=== PATIENT | male | born 1965 | race Caucasian/White ===

== ENCOUNTER 2016-12-06 18:00 | Inpatient (IN) ==
[2016-12-06 18:26] LABS: Basophils % 0.4 %; Eosinophils # 0.2 K/mcL (0.0-0.6); Eosinophils % 1.9 %; Hematocrit 45.3 % (37.5-50.1); Hemoglobin 15.1 g/dL (12.9-16.9); Immature Granulocytes % 0.2 % (0-4); Lymphocytes # 2.1 K/mcL (0.6-4.6); Lymphocytes % 22.1 %; Mean Corpuscular HGB Conc 33.3 g/dL (31.6-35.5); Mean Corpuscular Hemoglobin 29.4 pg (28.0-33.3); Mean Corpuscular Volume 88.1 fL (83.0-100.0); Monocytes # 1.1 K/mcL (0.0-1.3); Monocytes % 11.2 %; Neutrophils # 6.1 K/mcL (1.6-8.9); Platelet Count 225 K/mcL (140-400); Red Blood Count 5.14 M/mcL (4.19-5.50); Red Cell Distribution Width 13.6 % (11.5-14.5); Segmented Neutrophils % 64.2 %
--- NOTE | 2016-12-06 18:33 | Emergency Department Note ---
Disposition Clinical Impression: Unstable angina pectoris Disposition: Transfer Short-Term Hosp Condition: Good Referrals: NO,PCP [Primary Care Provider] - Forms: ED Satisfaction Letter Chest Pain HPI - General Chief Complaint: ED Chest Pain Stated Complaint: chest pain Time Seen by Provider: 12/06/16 18:07 Source: patient Mode of arrival: ambulatory Limitations: no limitations Vital Signs Reviewed: Yes Nursing Notes Reviewed: Yes - History of Present Illness Pt complaint: chest pain Onset (ago): hour(s) (6) Duration: intermittent Onset: during exertion Pain Location: substernal Severity scale (1-10): 6 Quality: heaviness Pain Radiation: none Improves with: nitroglycerin Worsens with: nothing Associated symptoms: Reports: diaphoresis, sense of impending doom Treatments prior to arrival chest pain: aspirin, nitroglycerin - Related Data Home Medications Medication Instructions Recorded Confirmed OxyCODONE/APAP 5/325 [Percocet 1 each PO Q6HR 01/16/15 01/16/15 5/325 MG] Previous Rx's Medication Instructions Recorded Nicotine Patch [Nicoderm] 21 mg TD DAILY #30 patch.td24 01/17/15 Simvastatin [Zocor] 20 mg PO HS #30 tablet 01/17/15 amLODIPine [Norvasc] 5 mg PO DAILY #30 tablet 01/17/15 Allergies Allergy/AdvReac Type Severity Reaction Status Date / Time No Known Allergies Allergy Verified 01/16/15 08:00 All systems ED: reviewed and negative except as stated. Constitutional: Denies: fever, chills, weakness Respiratory: Denies: wheezes, hemoptysis Chest Pain PMH - Past Medical History Medical history: Reports: other Surgical history: Reports: herniorrhaphy Psychiatric history: Reports: no psych history - Social History Smoking Status: Current every day smoker Alcohol use: Reports: occasionally Drug use: Reports: none Physical Exam - General Limitations: no limitations General appearance: alert, in no apparent distress - Head Head exam: atraumatic, normocephalic, normal inspection - Eye Eye exam: Present: normal appearance, PERRL, EOMI - Expanded Eye Exam Pupils: Left: reactive - ENT ENT exam: normal exam, normal oropharynx, mucous membranes moist - Expanded ENT Exam External ear exam: Present: normal external inspection Mouth exam: Present: normal external inspection Teeth exam: Present: normal inspection Throat exam: Present: normal inspection - Neck Neck exam: Present: normal inspection, full ROM, trachea midline - Chest Chest inspection: Present: normal inspection, symmetric chest wall rise - Respiratory Respiratory exam: Present: normal lung sounds bilaterally - Cardiovascular Cardiovascular exam: Present: regular rate, normal rhythm, normal heart sounds - Abdominal Exam Abdominal exam: Present: soft, Non-Tender. Absent: tenderness, distention, guarding, rebound, rigidity - Extremities Exam Extremities exam: Present: normal inspection, full ROM. Absent: tenderness, pedal edema - Expanded Upper Extremity Exam Shoulder exam: Present: normal inspection, full ROM Arm exam: Present: normal inspection, full ROM Elbow exam: Present: normal inspection, full ROM Forearm/Wrist exam: Present: normal inspection, full ROM Hand exam: Present: normal inspection, full ROM Vascular exam: Normal: capillary refill, radial pulse - Expanded Lower Extremity Exam Hip/Pelvis exam: Present: normal inspection, full ROM Upper leg exam: Present: normal inspection, full ROM Knee exam: Present: normal inspection, full ROM Lower leg exam: Present: normal inspection, full ROM Ankle exam: Present: normal inspection, full ROM Foot/toe exam: Present: normal inspection, full ROM Neurovascular/Tendon exam: Absent: motor deficit, sensory deficit, tendon deficit - Back Exam Back exam: Present: normal inspection, full ROM. Absent: tenderness - Neurological Exam Neurological exam: Present: alert, oriented X3 - Expanded Neurological Exam Patient oriented to: Present: person, place, time Coma Scale Eye Opening: Spontaneous Coma Scale Motor Response: Obeys Commands Coma Scale Verbal Response: Oriented Coma Scale Total: 15 - Psychiatric Psychiatric exam: Present: normal affect, normal mood - Skin Skin exam: Present: warm, dry, intact, normal color Course Vital Signs O2 Sat by Pulse Oximetry 97 12/06/16 18:13 Temperature 98.0 F 12/06/16 20:47 Pulse Rate 56 12/06/16 20:56 Respiratory Rate 18 12/06/16 20:56 Blood Pressure 140/77 12/06/16 20:56 O2 Sat by Pulse Oximetry 97 12/06/16 20:56 Oxygen Delivery Oxygen Delivery Room Air Chest Pain - MDM Narrative Medical decision making narrative: Patient states he does not want to be admitted to our facility 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 - Lab Data Lab results reviewed: Yes I reviewed the patient's lab results. Result diagrams: 12/06/16 18:18 12/06/16 18:18 Lab Results 12/06/16 12/06/16 12/06/16 Range/Units 18:18 18:18 18:18 WBC 9.6 (4.3-11.1) K/mcL RBC 5.14 (4.19-5.50) M/mcL Hgb 15.1 (12.9-16.9) g/dL Hct 45.3 (37.5-50.1) % MCV 88.1 (83.0-100.0) fL MCH 29.4 (28.0-33.3) pg MCHC 33.3 (31.6-35.5) g/dL RDW 13.6 (11.5-14.5) % Plt Count 225 (140-400) K/mcL MPV 10.0 (9.4-12.4) fL Immature Gran % 0.2 (0-4) % Seg Neutrophils % 64.2 % Lymphocytes % 22.1 % Monocytes % 11.2 % Eosinophils % 1.9 % Basophils % 0.4 % Neutrophils # 6.1 (1.6-8.9) K/mcL Lymphocytes # 2.1 (0.6-4.6) K/mcL Monocytes # 1.1 (0.0-1.3) K/mcL Eosinophils # 0.2 (0.0-0.6) K/mcL Basophils # 0.0 (0.0-0.2) K/mcL PT 12.4 H (9.4-12.1) Seconds INR 1.1 APTT 29.0 (26.0-36.0) Seconds D-Dimer 442 (0-500) ng/mLFEU Sodium 141 (136-145) mEq/L Potassium 3.7 (3.5-4.5) mEq/L Chloride 111 H (98-109) mEq/L Carbon Dioxide 24 (19-29) mEq/L BUN 9 (8-26) mg/dL Creatinine 0.88 (0.72-1.25) mg/dL Est GFR ( Amer) > 60 (> 60) Est GFR (Non-Af Amer) > 60 (> 60) BUN/Creatinine Ratio 10 (6-26) Glucose 106 H (70-99) mg/dL Calculated Osmolality 291 (280-300) Calcium 9.1 (8.6-10.8) mg/dL Troponin I (0-0.03) ng/mL 12/06/16 Range/Units 18:18 WBC (4.3-11.1) K/mcL RBC (4.19-5.50) M/mcL Hgb (12.9-16.9) g/dL Hct (37.5-50.1) % MCV (83.0-100.0) fL MCH (28.0-33.3) pg MCHC (31.6-35.5) g/dL RDW (11.5-14.5) % Plt Count (140-400) K/mcL MPV (9.4-12.4) fL Immature Gran % (0-4) % Seg Neutrophils % % Lymphocytes % % Monocytes % % Eosinophils % % Basophils % % Neutrophils # (1.6-8.9) K/mcL Lymphocytes # (0.6-4.6) K/mcL Monocytes # (0.0-1.3) K/mcL Eosinophils # (0.0-0.6) K/mcL Basophils # (0.0-0.2) K/mcL PT (9.4-12.1) Seconds INR APTT (26.0-36.0) Seconds D-Dimer (0-500) ng/mLFEU Sodium (136-145) mEq/L Potassium (3.5-4.5) mEq/L Chloride (98-109) mEq/L Carbon Dioxide (19-29) mEq/L BUN (8-26) mg/dL Creatinine (0.72-1.25) mg/dL Est GFR ( Amer) (> 60) Est GFR (Non-Af Amer) (> 60) BUN/Creatinine Ratio (6-26) Glucose (70-99) mg/dL Calculated Osmolality (280-300) Calcium (8.6-10.8) mg/dL Troponin I 0.05 H* (0-0.03) ng/mL - Radiology Data Radiology results reviewed: Yes I reviewed the patient's radiology results. - EKG Data EKG attestation: Yes I reviewed and interpreted this EKG. EKG shows normal: sinus rhythm Rate: normal (64) Rhythm: NSR [place]/QRS: normal Interpretation: no acute changes
[2016-12-06 18:35] LABS: INR 1.1; Prothrombin Time 12.4 Seconds (9.4-12.1)
[2016-12-06 18:37] LABS: BUN/Creatinine Ratio 10 (6-26); Blood Urea Nitrogen 9 mg/dL (8-26); Calcium 9.1 mg/dL (8.6-10.8); Carbon Dioxide 24 mEq/L (19-29); Chloride 111 mEq/L (98-109); Glucose 106 mg/dL (70-99); Osmolality,Calculated 291 (280-300); Potassium 3.7 mEq/L (3.5-4.5); Sodium 141 mEq/L (136-145); eGFR For African Americans > 60 (> 60); eGFR For Non-African Americans > 60 (> 60)
[2016-12-06] MEDS ORDERED: *HR* Enoxaparin 100 MG/ML SYRINGE SQ STA (20:45)
[2016-12-06] MEDS: Nitroglycerin 0.4 MG TAB.SUBL SL PRN (21:42)
[2016-12-06] MEDS ORDERED: *HR* Ticagrelor 90 MG TABLET PO ONE (22:04)
[2016-12-06] MEDS ORDERED: Heparin 1,000 UNITS/500 mL NS 500 ML ONE (22:23)
[2016-12-06] MEDS ORDERED: *HR* FentaNYL (PF) 250 MCG/5 ML VIAL ONE (22:23)
[2016-12-06] MEDS ORDERED: 0.9 % Sodium Chloride 1,000 ML ONE ×2 (22:23→22:40)
[2016-12-06] MEDS ORDERED: *HR* Midazolam HCl 5 MG/5 ML VIAL IVP ONE (22:23)
[2016-12-06] MEDS ORDERED: Nitroglycerin 1,000 MCG/10 ML VIAL IV ONE (22:23)
[2016-12-06] MEDS ORDERED: *HR* Heparin 10,000 UNIT/10 ML VIAL ONE (22:23)
[2016-12-06] MEDS ORDERED: Verapamil 5 MG/2 ML VIAL ONE (22:23)
[2016-12-06] MEDS ORDERED: *HR* Morphine 2 MG/ML SYRINGE IVP PRN (22:44)
[2016-12-06] MEDS ORDERED: Tirofiban 5 MG/100ML 5 MG/100 ML BAG IV ONE (22:55)
--- NOTE | 2016-12-06 23:18 | Pre-Sedation Evaluation ---
Pre-sedation evaluation - Pre-sedation checklist Date of procedure: 12/06/16 [facility] Recent Vitals: Last Vital Signs Temp 98.0 F 12/06/16 20:47 Pulse 58 12/06/16 22:31 Resp 18 12/06/16 22:35 BP 152/87 12/06/16 22:35 Pulse Ox 97 12/06/16 22:31 H&P (including ROS) documented in medical record: Yes Previous reaction to sedatives/anesthetics: No Dietary Status: unknown Airway Assessment: Patient can open mouth completely, TMJ function normal Dentition: No loose teeth or bridges ASA Classification *see protocol: CLASS II-Mild systemic disease, E-EMERGENCY- Add to any of the above to indicate emergent Plan of Care: Pt appropriate candidate for procedure/moderate/conscious sedation , Risks/benefits of procedure/sedation discussed w/ patient/family, If not NPO; Risk of intake outweiged by necessity to perform procedure
[2016-12-06] MEDS ORDERED: Acetaminophen 325 MG TABLET PO PRN (23:20)
[2016-12-06] MEDS ORDERED: *HR* OxyCODONE/APAP 5/325 TABLET PO PRN (23:20)
[2016-12-06] MEDS ORDERED: *HR* HYDROcodone/Acet 5/325 mg TABLET PO PRN (23:20)
--- NOTE | 2016-12-06 23:20 | Cardiology History & Physical ---
Date of Encounter: 12/06/16 Time of Encounter: 23:20 Assessment and Plan (1) STEMI (ST elevation myocardial infarction) Current Visit: Yes Status: Acute STEMI alert based on second EKG that was diagnostic. Asa, brilinta, heparin given. Emergent LHC. EF assessment will be completed. Cardiac rehab. The assessment and plan as outlined above was discussed with the patient and/or family members who expressed understanding and agreement. All questions were answered. Qualifiers: Involved coronary artery: LAD coronary artery Qualified Code(s): I21.02 - ST elevation (STEMI) myocardial infarction involving left anterior descending coronary artery History of Present Illness Chief complaint: chest pain HPI: Mr. Park is a 50 year old male smoker with no previous cardiac history presents with waxing waning 2 days of chest pain that became severe tonight 10/ 10 associated with dyspnea not completely relieved with aspirin and NTG. EKG shows anteroseptal STEMI. Past Med Surg Social Fam HX - Past Medical History Medical history: other Psychiatric history: no psych history - Past Surgical History Surgical History: herniorrhaphy - Social History Smoking Status: Current every day smoker Smokeless Tobacco Status: No Alcohol use: occasionally Drug use: none - Family History Mother Living Status: Hx Family Cardiac Disorders: Yes Father Living Status: Still Living Hx Family Cancer: Yes Medications and Allergies No Known Home Drugs 12/06/16 [History] Allergies acetaminophen [From Darvocet-N] Allergy (Verified 12/06/16 22:13) Itching propoxyphene [From Darvocet-N] Allergy (Verified 12/06/16 22:13) Itching All Systems Review: A 10-system review of systems was performed and is negative for pertinent findings except as documented above in the HPI. Physical Examination Vital Signs, Last 4 Hours Pulse Resp BP Pulse Ox 12/06/16 22:35 18 152/87 12/06/16 22:31 58 18 161/89 97 12/06/16 22:26 66 18 150/103 96 12/06/16 22:21 59 18 161/89 96 12/06/16 22:16 62 18 156/89 97 12/06/16 22:10 72 18 153/96 98 Results 12/06/16 18:18 12/06/16 18:18
[2016-12-06] MEDS ORDERED: Ondansetron 4 MG/2 ML VIAL IVP PRN (23:21)
[2016-12-06] MEDS ORDERED: Tirofiban 12.5 MG/250ML 12.5 MG/250 ML BAG IVC SCH (23:30)
--- NOTE | 2016-12-06 23:34 | Invasive Diagnostic Lab Proc ---
Name: Og Park Date of Study: 12/06/2016 Date: 1965 Ht: 74.0in Medical Record#: [id number] Age: 50 Wt: 193.79lb Gender: Male BSA: 2.14 Order #: [id number] BMI: 24.87 Physicians Procedure Physician: [facility] Estes MD, [facility] Referring MD: Referring MD: Staff Name Position Time In Arely Shi RT (R) Scrub 10:47 PM Virgilio Cruz RN Insulation Sprayer 10:47 PM Natalia Patel RN Monitor 10:47 PM Indications Indication STEMI Procedures Performed Procedure PRQ CARD REVASC PA 1 VSL L HRT ARTERY/VENTRICLE ANGIO Pre-Procedure Checklist Informed consent is complete signed and on chart. H&P is on chart. ID band is on and ID verified with patient. Patient NPO for procedure The procedure was described for the patient and questions were answered. Blood Pressure: 170/108 ECG is on chart. Rhythm: NSR Plan of Care Patient will tolerate the procedure without complications. Adequate level of comfort will be maintained. Hemodynamics will remain stable Patient will recover from procedure without complications. Respiratory function will be maintained. Cardiac rhythm will remain stable. Patient temperature will be maintained. Patient and/or family have verbalized understanding of the procedure. Patient Education Developmentally Appropriate for Age: Yes Intravenous Access Time IV Size Location DC'd Fluid/Drip Rate Units RN 10:45 PM 18g 1 1/" Patent On Arrival Lt Antecubital 0.9NaCl Allergies Codeine propoxyphene acetaminophen Vital Signs Time BP (mmHg) HR (bpm) O2 Sat. RR (bpm) LOC 10:42 PM 84 / 54 68 98 % 17 5 = Fully awake and oriented or at pre-proc level 10:44 PM 114 / 81 60 99 % 10 5 = Fully awake and oriented or at pre-proc level 10:48 PM 170 / 108 66 98 % 17 5 = Fully awake and oriented or at pre-proc level 10:52 PM 140 / 72 78 94 % 16 5 = Fully awake and oriented or at pre-proc level 10:58 PM 164 / 87 81 96 % 16 5 = Fully awake and oriented or at pre-proc level 11:02 PM 176 / 92 73 97 % 11 5 = Fully awake and oriented or at pre-proc level 11:07 PM 172 / 87 65 97 % 20 5 = Fully awake and oriented or at pre-proc level 11:12 PM 166 / 79 63 97 % 18 5 = Fully awake and oriented or at pre-proc level 11:17 PM 123 / 71 82 99 % 19 5 = Fully awake and oriented or at pre-proc level Procedural Medications Time Medication Dose Units Method Given By 10:48 PM Oxygen 2 L/min nasal cannula Virgilio Cruz RN 10:48 PM Versed 2 mg Intravenous Virgilio Cruz RN 10:48 PM Fentanyl 50 mcg Intravenous Virgilio Cruz RN 10:50 PM Lidocaine 2% 0.5 ml Subcutaneous Ryan Estes MD, FAC 10:51 PM Heparin 4000 units Nitroglycerin 200 mcg Verapamil 2.5 mg Intraarterial Ryan Estes MD, FACC 10:56 PM Aggrastat Bolus: 46 ml Intravenous Virgilio Cruz RN 10:57 PM Aggrastat 12.5mg/250ml 16 ml Intravenous Virgilio Cruz RN 11:09 PM Nitroglycerin 200 mcg Intracoronary Ryan Estes MD 11:14 PM Fentanyl 50 mcg Intravenous Virgilio Cruz RN ASA Classification: CLASS II- Mild systemic disease (i.e. well-controlled diabetes, hypertension, asthma, cigarette smoking) Emergent Procedure: ASA score is assumed Tian Score Preprocedure Postprocedure Activity 2- Moves 4 extremities sustained head lift Activity 2- Moves 4 extremities sustained head lift Circulation 2- SBP +/= 20 points of pre-anesthetic level Circulation 2- SBP +/= 20 points of pre-anesthetic level Consciousness 2- Awake and alert oriented x 3 Consciousness 2- Awake and alert oriented x 3 O2 Saturation 2- Able to maintain O2 satruation of 92% on room air O2 Saturation 2- Able to maintain O2 satruation of 92% on room air Respiratory 2- Able to deep breathe and cough well Respiratory 2- Able to deep breathe and cough well Total Score 10 Total Score 10 Contrast Agent: Isovue Diagnostic Contrast: 101 ml Total Contrast: 101 ml Fluoro Dose: 394 mGy Procedure Log Time Note Enter By 10:22 PM CathStat 10:42 PM Vitals capture started with the following parameters, Patient=Adult, Interval=5 min, Initial Bdwouawy=301 mmHg, Deflation Rate=5 mmHg, Cuff placed on Right Arm 10:42 PM HR=68 bpm, NIBP=84/54 mmhg, SpO2=98 %, Resp=17 B/min 10:43 PM NIBP STAT measurement started. 10:44 PM HR=60 bpm, ETJP=652/81 mmhg, SpO2=99 %, Resp=10 B/min 10:47 PM Pt arrived to dental laboratory technician 2 at 22:47 csmith 10:47 PM Arely Shi RT (R) Position: Scrub Time in: :47 csmith 10:47 PM Virgilio Cruz RN Position: Insulation Sprayer Time in: :47 csmith 10:47 PM Natalia Patel RN Position: Monitor Time in: :47 csmith 10:47 PM Patient charges- Angio tray pack, Navilyst 3mm J, Pulse Oximetry and ACIST tubing and transducer csmith 10:47 PM Recorded ECG: HR=63 Condition=Condition 1 10:47 PM Case Delayed No csmith 10:47 PM Hair removed from procedure site in procedure lab using clippers. Right wrist prepped with Chloraprep by Arely Shi (R), safety strap applied then patient was draped. Skin intact. csmith 10:47 PM Physician arrived :47 csmith 10:47 PM ASA Class CLASS II- Mild systemic disease (i.e. well-controlled diabetes, hypertension, asthma, cigarette smoking) csmith 10:47 PM Meet and greet completed csmith 10:47 PM Sign in performed according to hospital policy. csmith 10:47 PM Procedure start 22:47 csmith 10:48 PM HR=66 bpm, CMFS=124/108 mmhg, SpO2=98 %, Resp=17 B/min 10:48 PM Time: 22:48 Oxygen on at 2 L/min per nasal cannula by Virgilio Cruz RN [facility] 10:48 PM Time: 22:48 Versed 2 mg Intravenous Given by Virgilio Cruz RN [facility] 10:48 PM Time: 22:48 Fentanyl 50 mcg Intravenous Given by Virgilio Cruz RN csmith 10:49 PM Recorded ECG: HR=72 Condition=Condition 1 10:49 PM Pressure channel 1 zeroed. 10:50 PM Time out performed according to hospital policy csmith 10:51 PM Time: 22:50 0.5 ml Lidocaine 2% to right radial Subcutaneous Given by Ryan Estes MD, [facility] csmith 10:51 PM Access obtained by percutaneous puncture. 6Fr 10cm Terumo Glidesheath sheath placed in right Radial artery. [id number] csmith 10:51 PM Time: 22:51 Patient given 4,000 units Heparin, 200 mcg Nitroglycerin, and 2.5 mg Verapamil Intraarterial by yRan Estes MD, [facility] csmith 10:52 PM 6Fr EBU 3.5 Cordis guide catheter was used to cannulate the PCI vessel successfully. reused? No csmith 10:52 PM HR=78 bpm, FOPM=617/72 mmhg, SpO2=94.0 %, Resp=16 B/min, Comment=SR 10:52 PM Inflation device was opened. csmith 10:53 PM Guide catheter removed intact. csmith 10:54 PM 6Fr RBL 3.5 Convey guide catheter was used to cannulate the PCI vessel successfully. reused? No csmith 10:55 PM Recorded Pressure: Ao, HR=75, Condition=Condition 1 (Aorta) Ao 138/84/107 10:55 PM LCA angiography performed in multiple views. csmith 10:57 PM Time: 22:56 Aggrastat Bolus: 46 ml Intravenous Given by Virgilio Cruz RN Pike pump csmith 10:57 PM Time: 22:57 Aggrastat 12.5mg/250ml 16 ml Intravenous Given by Virgilio Cruz RN Pike pump csmith 10:57 PM 2.25 mm x 12 mm Trek Rx balloon across target lesion- successful. reused? No csmith 10:58 PM Lesion found in Proximal LAD. Pre Stenosis: 95 Pre PARI Flow: 3: Complete and Brisk Flow/Perfusion csmith 10:58 PM Proximal Left Anterior Descending Coronary Artery with 95% stenosis. csmith 10:58 PM HR=81 bpm, KBAQ=504/87 mmhg, SpO2=96.0 %, Resp=16 B/min, Comment=SR 10:58 PM Balloon inflated @ 8 cody for 6 seconds csmith 10:59 PM Balloon inflated @ 14 cody for 15 seconds csmith 10:59 PM Balloon inflated @ 10 cody for 7 seconds csmith 10:59 PM Balloon inflated @ 10 cody for 9 seconds csmith 11:00 PM Balloon inflated @ 8 cody for 7 seconds csmith 11:01 PM Balloon catheter removed intact. csmith 11:01 PM 2.5mm x 16mm Synergy drug-eluting stent across target lesion- successful Lot #[id number] csmith 11:01 PM No ACT needed at this time per Dr. Estes csmith 11:02 PM Stent deployed @ 20 cody for 20 seconds csmith 11:02 PM HR=73 bpm, VVNW=169/92 mmhg, SpO2=97.0 %, Resp=11 B/min, Comment=SR 11:03 PM 4.0 mm x 6mm NC Quantum Hartshorn Monorail balloon across target lesion- successful. reused? No csmith 11:04 PM Lesion found in Proximal Circumflex. Pre Stenosis: 20 Pre PARI Flow: 3: Complete and Brisk Flow/Perfusion csmith 11:05 PM Circumflex, Obtuse Marginal, Left Posterior Descending, and Left Posterolateral Coronary Arteries with 20 % stenosis. csmith 11:05 PM Recorded Pressure: Ao, HR=63, Condition=Condition 1 (Aorta) Ao 135/73/98 11:05 PM Balloon inflated @ 18 cody for 15 seconds csmith 11:07 PM Guide wire removed intact. csmith 11:07 PM Guide catheter removed intact. csmith 11:07 PM Lesion found in 1st Diagonal. Pre Stenosis: 70 Pre PARI Flow: 3: Complete and Brisk Flow/Perfusion csmith 11:07 PM HR=65 bpm, YPTN=156/87 mmhg, SpO2=97.0 %, Resp=20 B/min, Comment=SR 11:08 PM 5Fr Pigtail [facility] Catheter selectively placed in left ventricle csmith 11:09 PM Recorded Pressure: LV, HR=72, Condition=Condition 1 (Left Ventricle) LV 151/11/37 11:09 PM Bolus angiogram of left Ventricle complete: 12 ml/sec for a total of 30 mls csmith 11:09 PM Recorded Pressure: LV, HR=73, Condition=Condition 1 (Left Ventricle) LV 127/11/25 11:09 PM Time: 23:09 Nitroglycerin 200 mcg Intracoronary Given by Ryan Estes MD csmith 11:10 PM Recorded Pressure: LV, HR=85, Condition=Condition 1 (Left Ventricle) LV 131/10/25 11:10 PM Recorded Pressure: LV, Ao, HR=72, Condition=Condition 1 (Left Ventricle) LV 150/8/17, (Aorta) Ao 150/54/112 11:11 PM Catheter removed csmith 11:11 PM 5Fr 3DRC catheter inserted over the wire [id number] csmith 11:12 PM HR=63 bpm, LDEP=481/79 mmhg, SpO2=97.0 %, Resp=18 B/min, Comment=SR 11:13 PM Recorded Pressure: Ao, HR=64, Condition=Condition 1 (Aorta) Ao 146/98/120 11:13 PM Recorded Pressure: Ao, HR=63, Condition=Condition 1 (Aorta) Ao 144/94/116 11:13 PM Catheter removed csmith 11:13 PM 5Fr IM catheter inserted over the wire [id number] csmith 11:14 PM Time: 23:14 Fentanyl 50 mcg Intravenous Given by Virgilio Cruz RN csmith 11:15 PM Recorded Pressure: Ao, HR=67, Condition=Condition 1 (Aorta) Ao 143/96/119 11:15 PM Lesion found in Mid RCA. Pre Stenosis: 20 Pre PARI Flow: 3: Complete and Brisk Flow/Perfusion csmith 11:15 PM Right Coronary, Right Posterior Descending Arteries with Right Posterolateral and Acute Marginal branches with 20 % stenosis. csmith 11:15 PM Coronary Dominance: right csmith 11:15 PM Catheter removed csmith 11:16 PM Procedure completed at 23:16 csmith 11:17 PM Sign out completed: Radiation Dose 393.98 mGy Fluoro Time: 7.2 Isovue 370 - 200ml contrast 101 ml given by Ryan Estes MD, [facility]. Complications: NoneCardiac Rehab Consult needed: YesConfirmed administered medications: Yes csmith 11:17 PM Isovue 370 - 200ml,1 Bottle(s) used. csmith 11:17 PM Arterial sheath pulled, Vasc Band closure device used and was Successful S/N. csmith 11:17 PM 10 ml air in Vasc Band. csmith 11:17 PM Post ECG NSR csmith 11:17 PM Post Blood Pressure 166/79 csmith 11:17 PM HR=82 bpm, BALW=988/71 mmhg, SpO2=99.0 %, Resp=19 B/min, Comment=SR 11:17 PM 23:17 Post Pulses Rt Radial 1+ csmith 11:18 PM Information taught Cardiac Cath and Vasc Band csmith 11:18 PM Education needs Plan of Care and Responsibilities of Patient in Care csmith 11:18 PM Learning barriers :None csmith 11:18 PM Education Methods Verbal csmith 11:21 PM Education evaluation Able to repeat information csmith 11:21 PM Site status No bleeding/hematoma - Rt Wrist as reported by Arely Shi RT (R) at 23:18 csmith 11:21 PM Plavix, Effient or Brilinta given in ER csmith 11:21 PM Family placed in consult room. csmith 11:21 PM Complications: None csmith 11:24 PM Delay to floor No csmith 11:24 PM Report given to Eliazar WILKERSON Pt taken to ICU Room #4. 23:24 csmith 11:28 PM Patient out of room: 23:28 csmith Complications Complication None Hemodynamics Pressures Site Systolic/A Wave Diastolic/V Wave Mean AO 138 84 107 AO 135 73 98 LV 151 11 37 LV 127 11 25 LV 131 10 25 LV 150 8 17 AO 150 54 112 AO 146 98 120 AO 144 94 116 AO 143 96 119 Post Procedure Information Blood Pressure: 166/79 mmHg Rhythm: NSR Post procedural instructions were given Closure Device Time Device Success/Fail 12/06/2016 11:16:00 PM Mechanical Compression Successful Site Checks Time Location Status Staff Sheath In? Note 11:18 PM Rt Wrist No bleeding/hematoma Arely Shi RT (R) Pulses Time Site Pre-Procedure Post-Procedure Note 11:17:00 PM Rt Radial 1+ 12/06/2016 10:45:00 PM Rt Radial 2+ 12/06/2016 10:45:00 PM Rt Radial Normal plethysmography's Test Updated by Virgilio Cruz RN on 12/06/2016 11:29:30 PM electronically signed on 12/06/2016 11:29:51 PM with status of Final
[2016-12-07] MEDS: Nitroglycerin 0.4 MG TAB.SUBL SL PRN (01:13)
[2016-12-07 06:26] LABS: Basophils # 0.1 K/mcL (0.0-0.2); Basophils % 0.4 %; Eosinophils # 0.2 K/mcL (0.0-0.6); Eosinophils % 1.1 %; Hematocrit 46.1 % (37.5-50.1); Hemoglobin 15.2 g/dL (12.9-16.9); Immature Granulocytes % 0.5 % (0-4); Lymphocytes # 2.4 K/mcL (0.6-4.6); Lymphocytes % 17.7 %; Mean Corpuscular Hemoglobin 29.5 pg (28.0-33.3); Mean Corpuscular Volume 89.3 fL (83.0-100.0); Mean Platelet Volume 10.4 fL (9.4-12.4); Monocytes # 1.5 K/mcL (0.0-1.3); Neutrophils # 9.2 K/mcL (1.6-8.9); Platelet Count 192 K/mcL (140-400); Red Blood Count 5.16 M/mcL (4.19-5.50); Red Cell Distribution Width 13.8 % (11.5-14.5); Segmented Neutrophils % 69.3 %
[2016-12-07 06:36] LABS: BUN/Creatinine Ratio 11 (6-26); Blood Urea Nitrogen 8 mg/dL (8-26); Calcium 8.8 mg/dL (8.6-10.8); Carbon Dioxide 23 mEq/L (19-29); Chloride 109 mEq/L (98-109); Glucose 95 mg/dL (70-99); Osmolality,Calculated 286 (280-300); Potassium 3.6 mEq/L (3.5-4.5); Sodium 139 mEq/L (136-145); eGFR For African Americans > 60 (> 60); eGFR For Non-African Americans > 60 (> 60)
[2016-12-07] MEDS: Aspirin 81 MG TAB.CHEW PO SCH (08:23)
[2016-12-07] MEDS: *HR* Ticagrelor 90 MG TABLET PO SCH ×2 (08:23→20:59)
--- NOTE | 2016-12-07 11:35 | Cardiology Progress Note ---
Date of Encounter: 12/07/16 Time of Encounter: 11:32 Assessment and Plan (1) STEMI (ST elevation myocardial infarction) Current Visit: Yes Status: Acute Acute LA. S/p PCI to the pLAD with PTCA and SARA. Continue aspirin, and Brilinta, statin, and beta brian. Currently pain free. Check TTE. 24 hour telemetry review shows normal sinus rhythm with an average heart rate of 62 bpm. No VT and no significant bradycardia seen Importance of DAPT with Brilinta and aspirin uninterrupted for 1 year discussed with patient and he voiced understanding. Likely step down from ICU and a.m. Qualifiers: Involved coronary artery: LAD coronary artery Qualified Code(s): I21.02 - ST elevation (STEMI) myocardial infarction involving left anterior descending coronary artery (2) Hypertension Current Visit: No Status: Acute B/p acceptable. Qualifiers: Hypertension type: essential hypertension Qualified Code(s): I10 - Essential (primary) hypertension (3) Tobacco abuse Current Visit: No Status: Acute NRT therapy offered. Smoking cessation discussed. He already has nicotine patches at home and would like to try. Discussion w patient/family: The assessment and plan as outlined above was discussed with the patient and/or family members who expressed understanding and agreement. All questions were answered. Thank you for involving us in the care of your patient. Please call with any questions. Subjective Principal diagnosis: Acute anterior LA Interval history: S/p Acute septal anterior LA. Reported chest pain directly after procedure that resolved with NTG. No change in EKG. No other complaints. Objective Vital Signs, Last 4 Hours Pulse Resp BP Pulse Ox 12/07/16 11:09 67 16 136/92 97 12/07/16 10:00 61 16 111/85 96 12/07/16 09:49 55 16 122/82 95 12/07/16 08:26 68 18 142/85 95 General: Conversant, No Apparent Distress HEENT: Atraumatic, Normocephaly, Mucus Membranes Moist Neck: No JVD, Normal carotid pulses Cardiac: Reg Rate and Rhythm, Normal S1 and S2, No Murmur Lungs: Normal Breath Sounds, No Wheeze, Rales, Rhonchi Neuro: Alert and responsive, No focal deficits noted Abdomen: Soft, Non-Tender Skin: No rashes noted on visualized skin Musculoskeletal: No Chest Wall Tenderness Extremities: No Clubbing, No Cyanosis, No Edema, Normal Pulses, Other (Right radial access without hematoma or redness. Dressing is dry and intact.) Results 12/07/16 06:03 12/07/16 06:03 Lab Results 12/07/16 12/07/16 06:03 06:03 WBC 13.3 H Hgb 15.2 Hct 46.1 Plt Count 192 Sodium 139 Potassium 3.6 Chloride 109 Carbon Dioxide 23 BUN 8 Creatinine 0.76 Glucose 95 Calcium 8.8 - Imaging and Cardiology Echo: pending Cardiac cath: report reviewed - EKG Interpretation EKG results cardiology: personally reviewed (Sinus rhythm with ST elevation in the septal anterior leads.) Consult Discharge Plan - Plan Referrals: NO,PCP [Primary Care Provider] -
[2016-12-07] MEDS ORDERED: Nicotine 21 MG PATCH.TD24 TD SCH (12:15)
[2016-12-08] MEDS: *HR* Ticagrelor 90 MG TABLET PO SCH ×3 (08:35→20:56)
[2016-12-08] MEDS: Aspirin 81 MG TAB.CHEW PO SCH ×2 (08:36→18:15)
[2016-12-08] MEDS ORDERED: Acetaminophen 325 MG TABLET PO PRN (09:00)
[2016-12-08] MEDS ORDERED: *HR* HYDROcodone/Acet 5/325 mg TABLET PO PRN (09:00)
[2016-12-08] MEDS ORDERED: Metoprolol XL (24 HR) Succ 25 MG TAB.ER.24H PO SCH (09:00)
[2016-12-08] MEDS ORDERED: *HR* Morphine 2 MG/ML SYRINGE IVP PRN (09:00)
[2016-12-08] MEDS ORDERED: Ondansetron 4 MG/2 ML VIAL IVP PRN (09:00)
[2016-12-08] MEDS ORDERED: *HR* OxyCODONE/APAP 5/325 TABLET PO PRN (09:00)
[2016-12-08] MEDS ORDERED: Nitroglycerin 0.4 MG TAB.SUBL SL PRN (09:00)
--- NOTE | 2016-12-08 09:30 | Cardiology Progress Note ---
Date of Encounter: 12/08/16 Time of Encounter: 09:26 Assessment and Plan (1) STEMI (ST elevation myocardial infarction) Current Visit: Yes Status: Acute Acute IL. S/p PCI to the pLAD with PTCA and SARA. Minimal disease otherwise. No complications from procedure. Continue aspirin, Brilinta, statin, and beta brian. Currently pain free. 24 hour telemetry review shows normal sinus rhythm with an average heart rate of 68 bpm. No VT and no significant bradycardia seen Importance of DAPT with Brilinta and aspirin uninterrupted for 1 year discussed with patient and he voiced understanding. Smoking cessation discussed. Cardiac rehab consult ordered. Step town to telemetry floor. Possible d/c in am. Qualifiers: Involved coronary artery: LAD coronary artery Qualified Code(s): I21.02 - ST elevation (STEMI) myocardial infarction involving left anterior descending coronary artery (2) Cardiomyopathy Current Visit: Yes Status: Acute Acute systolic CHF. TTE revealed EF 30-35%. No significant valvular disease. No pulmonary hypertension. Currently euvolemic. Metoprolol changed to toprol XL. Low dose lisinopril started. CHF education reviewed. Low sodium diet. Daily weights. Qualifiers: Cardiomyopathy type: ischemic Qualified Code(s): I25.5 - Ischemic cardiomyopathy (3) Hypertension Current Visit: No Status: Acute B/p acceptable. Qualifiers: Hypertension type: essential hypertension Qualified Code(s): I10 - Essential (primary) hypertension (4) Tobacco abuse Current Visit: No Status: Acute NRT therapy offered. Smoking cessation discussed. He already has nicotine patches at home and would like to try. Discussion w patient/family: The assessment and plan as outlined above was discussed with the patient and/or family members who expressed understanding and agreement. All questions were answered. Thank you for involving us in the care of your patient. Please call with any questions. Subjective Principal diagnosis: Acute anterior IL Interval history: S/p Acute septal anterior IL. Denies chest pain overnight. No problems with right radial access site. Objective Vital Signs, Last 4 Hours Temp Pulse Resp BP Pulse Ox 12/08/16 08:35 71 18 123/75 94 12/08/16 07:30 98.3 F 12/08/16 06:00 65 18 100/65 96 General: Conversant, No Apparent Distress HEENT: Atraumatic, Normocephaly, Mucus Membranes Moist Neck: No JVD, Normal carotid pulses Cardiac: Reg Rate and Rhythm, Normal S1 and S2, No Murmur Lungs: Normal Breath Sounds, No Wheeze, Rales, Rhonchi Neuro: Alert and responsive, No focal deficits noted Abdomen: Soft, Non-Tender Skin: No rashes noted on visualized skin Musculoskeletal: No Chest Wall Tenderness Extremities: No Clubbing, No Cyanosis, No Edema, Normal Pulses, Other (Right radial dressing removed. 2/4+ pulse. No redness. No swelling. ) Results 12/07/16 06:03 12/07/16 06:03 - Imaging and Cardiology Echo: report reviewed - EKG Interpretation EKG results cardiology: personally reviewed Consult Discharge Plan - Plan Referrals: NO,PCP [Non-Partnered Physician] -
[2016-12-08] MEDS ORDERED: Nicotine 21 MG PATCH.TD24 TD SCH (12:15)
[2016-12-08] MEDS: Metoprolol XL (24 HR) Succ 25 MG TAB.ER.24H PO SCH (18:17)
[2016-12-09] MEDS: Aspirin 81 MG TAB.CHEW PO SCH (08:15)
[2016-12-09] MEDS: *HR* Ticagrelor 90 MG TABLET PO SCH (08:15)
[2016-12-09] MEDS: Metoprolol XL (24 HR) Succ 25 MG TAB.ER.24H PO SCH (08:15)
[2016-12-09 08:32] LABS: BUN/Creatinine Ratio 14 (6-26); Blood Urea Nitrogen 12 mg/dL (8-26); Calcium 8.9 mg/dL (8.6-10.8); Carbon Dioxide 26 mEq/L (19-29); Chloride 109 mEq/L (98-109); Glucose 129 mg/dL (70-99); Osmolality,Calculated 287 (280-300); Potassium 3.9 mEq/L (3.5-4.5); Sodium 138 mEq/L (136-145); eGFR For African Americans > 60 (> 60); eGFR For Non-African Americans > 60 (> 60)
[2016-12-09 08:35] LABS: Basophils # 0.1 K/mcL (0.0-0.2); Basophils % 0.4 %; Eosinophils # 0.2 K/mcL (0.0-0.6); Eosinophils % 1.8 %; Hematocrit 47.9 % (37.5-50.1); Hemoglobin 16.3 g/dL (12.9-16.9); Immature Granulocytes % 0.6 % (0-4); Lymphocytes # 2.3 K/mcL (0.6-4.6); Lymphocytes % 20.1 %; Mean Corpuscular Hemoglobin 30.4 pg (28.0-33.3); Mean Corpuscular Volume 89.2 fL (83.0-100.0); Mean Platelet Volume 10.6 fL (9.4-12.4); Monocytes # 1.2 K/mcL (0.0-1.3); Monocytes % 10.3 %; Neutrophils # 7.7 K/mcL (1.6-8.9); Platelet Count 200 K/mcL (140-400); Red Blood Count 5.37 M/mcL (4.19-5.50); Segmented Neutrophils % 66.8 %
--- NOTE | 2016-12-09 08:53 | Discharge Summary ---
Date of Encounter: 12/09/16 Time of Encounter: 08:51 - Discharge Diagnosis (1) STEMI (ST elevation myocardial infarction) Priority: Primary Status: Acute Qualifiers: Involved coronary artery: LAD coronary artery Qualified Code(s): I21.02 - ST elevation (STEMI) myocardial infarction involving left anterior descending coronary artery (2) Cardiomyopathy Priority: Primary Status: Acute Qualifiers: Cardiomyopathy type: ischemic Qualified Code(s): I25.5 - Ischemic cardiomyopathy (3) Hypertension Priority: Secondary Status: Acute Qualifiers: Hypertension type: essential hypertension Qualified Code(s): I10 - Essential (primary) hypertension (4) Tobacco abuse Priority: Secondary Status: Chronic - Discharge Medications Prescriptions: Nitroglycerin 0.4 mg SL Q5MIN PRN #25 tab PRN Reason: Chest Pain Aspirin 81 mg PO DAILY #30 tab Lisinopril 2.5 mg PO DAILY #30 tablet Metoprolol XL (24 HR) Succ [Toprol Xl] 25 mg PO DAILY #30 tab Rosuvastatin [Crestor] 40 mg PO HS #30 tab Ticagrelor [Brilinta] 90 mg PO BID #60 tablet Home Medications: Aspirin 81 mg PO DAILY #30 tab 12/09/16 [Rx] Lisinopril 2.5 mg PO DAILY #30 tablet 12/09/16 [Rx] Metoprolol XL (24 HR) Succ [Toprol Xl] 25 mg PO DAILY #30 tab 12/09/16 [Rx] Nicotine Patch [Nicoderm] 21 mg TD Q24H 12/09/16 [Rx] Nitroglycerin 0.4 mg SL Q5MIN PRN #25 tab 12/09/16 [Rx] Rosuvastatin [Crestor] 40 mg PO HS #30 tab 12/09/16 [Rx] Ticagrelor [Brilinta] 90 mg PO BID #60 tablet 12/09/16 [Rx] Allergies/Adverse Reactions: Allergies acetaminophen [From Darvocet-N] Allergy (Verified 12/06/16 22:13) Itching propoxyphene [From Darvocet-N] Allergy (Verified 12/06/16 22:13) Itching Procedures/tests Complete & Pending: Procedures Performed prior 72 hours Category Date Time Status ECG 12 lead ECG [ECG] Routine Y 12/06/16 22:45 Ordered ECG 12 lead ECG [ECG] Routine Y 12/06/16 23:21 Completed ECG 12 lead ECG [ECG] Routine Y 12/07/16 07:00 Ordered ECG 12 lead ECG [ECG] Stat Y 12/06/16 22:45 Completed EV echocardiogram Routine Y 12/07/16 22:45 Completed Date of admission: 12/06/16 22:08 Primary care physician: Ken Rush Consults: 12/06/16 22:45 Consult to Cardiac Rehabilitation-Phase1 [CONS] Routine Comment: Reason for Consult: AMI Call Completed: Yes Consult to Nurse Navigator [CONS] Routine Comment: Discharging clinician: Daniel Wright Anticipated date of discharge: 12/09/16 - Patient Status Disposition: Home, Self-Care Condition: Good Functional capacity at discharge: independent ambulation Overall status at discharge: patient is progressing back to baseline - Discharge Instructions Follow Up With: NO,PCP [Non-Partnered Physician] - Additional Instructions: RISK FACTORS: STOP SMOKING: If you smoke, STOP. Smoking or tobacco use significantly increases your risk of heart disease because nicotine causes the arteries to narrow or constrict. It also causes fats to stick to the artery. Your chances of having a heart attack are greatly increased if you continue to smoke. For more information, call the education line for smoking cessation 1-899-MAUUVUB EAT A LOW FAT/CHOLESTEROL/SODIUM DIET: This diet may help reduce your chances of having a heart attack. LIFTING: With affected extremity: Avoid bending, pushing off and lifting more than 2 pounds for 24 hours The following 48 hours, avoid lifting anything more than 5 pounds Avoid strenuous activity or repetitive motions ACTIVITY: You may walk or climb stairs as tolerated You can resume sexual activity as tolerated In general, you are encouraged to engage in a minimum of 30 minutes or more of moderate intensity physical activity, such as brisk walking, daily or at least 3 -4 times weekly BATHING Do not submerge the site into water (bath tub, hot tub, swimming pool, dishes) for 1 week. This can be a source for infection into the blood stream. You may shower after 24 hours SITE CARE: After 24 hours, you may remove the dressing and leave the site open to air. Keep the site clean and dry. Clean gently and pat dry. You can expect bruising and tenderness that gradually resolve within a week or two. Return to work as instructed per your physician Resume driving as instructed per physician Keep all scheduled follow up appointments Resume medications as instructed IMPORTANT: If prescribed a Platelet Aggregation Inhibitor such as, Plavix, Brilinta or Effient: Duration of therapy is minimum one year These medications are often used in combination with Aspirin in prevention of future heart attacks Never discontinue unless consult with your Ssrs Report Developer STROKE (CVA) Risk factors for a stroke are: Age, cigarette smoking, diabetes, excessive alcohol consumption, family history, high blood pressure, overweight, physical inactivity, prior stroke, heart attack, diagnosis of carotid artery stenosis or other artery disease. Warning signs: Sudden numbness or weakness of the face, arm or leg; especially on one side of the body, sudden confusion, trouble speaking or understanding, sudden trouble seeing in one or both eyes, sudden trouble walking, dizziness, loss of balance or coordination, sudden severe headache with no cause. Call 911 or go to the Emergency Room. CONGESTIVE HEART FAILURE: If you have been diagnosed with Congestive Heart Failure (CHF) and your symptoms return, make an appointment with your physician Weigh yourself daily. Notify your physician if you have a weight gain of two or more pounds in one day or five or more pounds in one week. If you experience any difficulty breathing, please call 911 BLEEDING: Although the risk of bleeding is minimal, it can happen. If you have any bleeding from the site, apply firm pressure above the puncture site for 10-15 minutes. If the bleeding does not stop, continue manual pressure and call 911 Contact [facility] ( ) if: You develop a fever greater than 101 degrees Fahrenheit Your site becomes reddened or has any drainage You have an increase in pain or burning at the site or if a large knot forms at the site. If you experience chest pain, shortness of breath, dizziness, or extreme tiredness, stop the activity and rest. Please notify [facility] office if you experience any of these symptoms and they are not relieved by rest please call 911! - Diet and Activity Activity: increase activity as tolerated Diet: low fat, low cholesterol, low salt diet - Hospital Course Hospital course: Mr. Park is a 50 year old male with a history of HTN and tobacco use who presented with chest pain. He was found to have an acute anterior MA and was taken emergently to the cardiac catheterization lab with Dr. Estes. [facility] revealed 95% stenosis in the pLAD and he received PTCA and SARA with good results. Minimal disease otherwise. No complication during the procedure. TTE showed EF 30-35%. He was euvolemic during his stay. He is ambulating in the hallway with no chest pain. Mild leukocytosis noted, likely reactive from MA. He denies symptoms of infection. Denies cough, fever, or chills. Cardiac rehab consult ordered. Importance of DAPT uninterrupted for minimum of one year with brilinta and asa discussed and he voiced understanding. Activity restrictions reviewed as stated above. CHF education reviewed. Smoking cessation discussed. He has nicotine patches at home and he would like to try to quit. He was recommend to stay off work for two weeks. Out patient f/u will be coordinated by [facility] in 7-10 days. Time spent discussing smoking cessation with patient: more than 10 minutes - Time Spent with Patient Total time spent providing and/or coordinating discharge services:1hr Greater than 30 minutes Physical Examination Vital Signs, Last 4 Hours Temp Pulse Resp BP Pulse Ox 12/09/16 05:00 98.1 F 66 12 136/68 99 General: Conversant, No Apparent Distress HEENT: Atraumatic, Normocephaly, Mucus Membranes Moist Neck: No JVD, Normal carotid pulses Cardiac: Reg Rate and Rhythm, Normal S1 and S2, No Murmur Lungs: Normal Breath Sounds, No Wheeze, Rales, Rhonchi Neuro: Alert and responsive, No focal deficits noted Abdomen: Soft, Non-Tender Skin: No rashes noted on visualized skin Musculoskeletal: No Chest Wall Tenderness Extremities: No Clubbing, No Cyanosis, No Edema, Normal Pulses, Other (Right radial access without redness. )
[2016-12-09 09:06] VITALS: BP 131/80
--- NOTE | 2016-12-09 10:03 | Electrocardiograph Report ---
[address] [address] Test Date: 2016-12-06 Pat Name: Og Park Department: 102 Room: [facility] Gender: M Scrap Preparer: Barby : 1965 Requested By: Frankie Chambers Order Number: [id number] Reading MD: Ryan Estes MD Measurements Intervals [place] Rate: 64 P: 60 WI: 144 QRS: 62 QRSD: 96 T: 71 QT: 381 QTc: 391 Interpretive Statements SINUS RHYTHM Electronically Signed On 12-09-2016 10:02:03 EDT by Ryan Estes MD
--- NOTE | 2016-12-09 10:06 | Electrocardiograph Report ---
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
--- NOTE | 2016-12-09 10:07 | Electrocardiograph Report ---
[address] [place], [place] [address] Test Date: 2016-12-07 Pat Name: Og Park Department: 109 Room: [facility] Gender: M Quality Assurance Associate: JESUS : 1965 Requested By: Ryan Estes Order Number: [id number] Reading MD: Ryan Estes MD Measurements Intervals [place] Rate: 61 P: 71 IA: 145 QRS: 45 QRSD: 102 T: 95 QT: 409 QTc: 413 Interpretive Statements SINUS RHYTHM ANTEROSEPTAL MYOCARDIAL INFARCTION, PROBABLY RECENT ACUTE [facility] Electronically Signed On 12-09-2016 10:06:32 EDT by Ryan Estes MD
--- NOTE | 2016-12-09 10:07 | Electrocardiograph Report ---
[address] [place] [address] Test Date: 2016-12-06 Pat Name: Og Park Department: 102 Room: [facility] Gender: M Needleworker: Tomeka : 1965 Requested By: Ryan Estes Order Number: [id number] Reading MD: Ryan Estes MD Measurements Intervals [place] Rate: 56 P: 62 PA: 134 QRS: 68 QRSD: 103 T: 89 QT: 388 QTc: 379 Interpretive Statements SINUS BRADYCARDIA ANTEROSEPTAL, PROBABLY RECENT ACUTE [facility] Electronically Signed On 12-09-2016 10:05:08 EDT by Ryan Estes MD
--- NOTE | 2016-12-10 13:09 | Invasive Diagnostic Lab ---
Name: Og Park Date of Study: 12/06/2016 Date: 1965 Ht: 188.0 cm /74.0 in Medical Record#: [id number] Age: 50 Wt: 87.9 kg / 193.79 lb Account/Order#: [id number] Gender: Male BSA: 2.14 Order #: [id number] Fluoro Dose: 394 mGy BMI: 24.87 Procedure Physician: Ryan Estes MD, [facility] Referring MD: Referring MD: Procedures Performed: PCI of Acute NV LEFT HEART CATH Indications: STEMI Impressions: There is severe one vessel coronary artery disease. There is LV Dysfunction EF 35% Patient had successful PTCA/Drug-Eluting Stent placement in the proximal LAD. Recommendations: Optimal medical therapy of patient's disease. Aggressive risk factor modification. History/Risk Factors: denies any history Procedure Access obtained in the right Radial artery by percutaneous puncture Patient had successful PTCA/Drug-Eluting Stent placement in the proximal LAD. Complications: None Contrast: Isovue 101ml Hemodynamics: Pressures Site Systolic/ A Wave Diastolic/ V Wave End Diastolic/ Mean HR AO 138 84 107 75 AO 135 73 98 63 LV 151 11 37 72 LV 127 11 25 73 LV 131 10 25 85 LV 150 8 17 67 AO 150 54 112 81 AO 146 98 120 64 AO 144 94 116 63 AO 143 96 119 67 LV Ventriculography Ejection Method: LV Gram Ejection Fraction: 35% Wall Motion: EPPERSON Anterobasal Mild Hypokinesis Anterolateral Akinesis Apical: Akinesis Inferoapical Normal Inferobasal Normal Coronary Dominance: right Lesion Findings/Interventions * Left Main Coronary Artery The LMCA is angiographically free of disease. * Left Anterior Descending There is a 16 mm long, 95% stenosis in the Proximal LAD. The lesion has a PARI flow of 3 and has no thrombus present. An intervention was performed on the Proximal LAD with a final stenosis of 0%. There were no lesion complications. The final PARI flow was 3. There is a 70% stenosis in the 1st Diagonal, proximal. The lesion has a PARI flow of 3. * Circumflex There is a 20% stenosis in the Proximal Circumflex. The lesion has a PARI flow of 3. * Right Coronary Artery There is a 20% stenosis in the Mid RCA. The lesion has a PARI flow of 3. Interventional Device(s) Vessel Segment Type Name Diameter (mm) Length (mm) Proximal LAD Balloon Trek Rx 2.25 12 Proximal LAD Drug Eluting Stent Synergy 2.5 16 Proximal LAD Balloon [place] Quantum [place] Monorail 4 6 Updated by Virgilio Cruz RN on 12/06/2016 11:25:58 PM Ryan Estes MD, FACC electronically signed on 12/10/2016 1:01:45 PM with status of Final
== END 2016-12-09 10:42 | disposition home or self-care (01) | DRG 246 ==
LOC: EMEROO 18:00 → ICNU 22:08
PROVIDERS: ADMIT Emergency Medicine; ATTEND Emergency Medicine